=== PATIENT | female | born 1965 | race Caucasian/White ===

== ENCOUNTER 2016-06-04 21:49 | Emergency (ER) | payer OTHER ==
[~2016-06-04] VITALS: Ht 172.7 cm; Wt 141.0 kg
[~2016-06-04 21:49] MED LIST: CIPRO500 MG PO; FLAGYL500 MG PO; HYDROCHLOROTHIA25 MG PO; LISINOPRIL20 MG PO; MOBIC7.5 MG PO; NORCO 5/3251 TABLET PO; PRILOSEC40 MG PO; VOLTAREN75 MG PO
[2016-06-04 22:13] LABS: HEMATOCRIT 37.5 % (36.0-46.0); MCH 30.3 PG (29.0-34.0); MCHC 33.9 G/DL (30.0-36.0); MCV 89.5 FL (83-99); MEAN PLAT.VOLUME 10.4 uM^3 (9.5-12.4); PLATELET COUNT 217 K/uL (156-360); RBC DIS.WIDTH-CV 12.8 % (11.8-14.6); RED BLOOD COUNT 4.19 M/uL (3.80-5.20); WHITE BLOOD COUNT 6.8 K/uL (4.1-10.2)
[2016-06-04 22:24] LABS: CHLORIDE 108 mEq/L (99-109); POTASSIUM 3.4 mEq/L (3.7-5.4); SODIUM 140 mEq/L (136-147)
[2016-06-04 22:25] LABS: GLUCOSE 95 mg/dL (70-99)
[2016-06-04 22:27] LABS: ANION GAP 6 MEQ/L (2-14)
[2016-06-04 22:29] LABS: GFR ESTIMATE (CALCULATED) > 59 mL/min/
[2016-06-04 22:30] LABS: UREA NITROGEN (BUN) 16 mg/dL (9-23)
[2016-06-04 22:35] LABS: D-DIMER ELISA 0.87 mg/L FEU (< 0.57)
[2016-06-04 22:48] LABS: TROP-I INTERPRETATION NEGATIVE; TROPONIN-I < 0.01 ng/mL (0.0-0.30)
[2016-06-05 01:21] VITALS: BP 115/59
== END 2016-06-05 01:34 | disposition home or self-care (01) ==
LOC: EME 21:49
DX: T49.0X5A Adverse effect of local antifungal, anti-infective and anti-inflammatory drugs, initial encounter (principal); F41.9 Anxiety disorder, unspecified; K76.89 Other specified diseases of liver; I10 Essential (primary) hypertension; G89.29 Other chronic pain; Z87.440 Personal history of urinary (tract) infections
CPT/HCPCS: 71020; 71275; 80048; 84484; 85027; 85379; 93005; 99281; 99285

== ENCOUNTER 2016-10-10 21:23 | Emergency (ER) | payer OTHER ==
[~2016-10-10] VITALS: Ht 172.7 cm; Wt 136.4 kg
[2016-10-10 22:26] LABS: EOSINOPHIL (%) 2.5 % (0-5); EOSINOPHIL COUNT 0.1 K/uL (0-0.3); HEMATOCRIT 40.5 % (36.0-46.0); IMMATURE GRANULOCYTE (%) 0.2 % (0.0-0.7); INSTRUMENT ABS NEUTROPHIL CT 1.9 K/uL; LYMPHOCYTE COUNT 2.5 K/uL (1.0-2.8); MCH 30.3 PG (29.0-34.0); MCHC 33.3 G/DL (30.0-36.0); MEAN PLAT.VOLUME 10.3 uM^3 (9.5-12.4); MONOCYTE (%) 12.6 % (3-12); MONOCYTE COUNT 0.7 K/uL (0-0.8); NEUTROPHIL (%) 36.4 % (45-76); NEUTROPHIL COUNT 1.9 K/uL (1.8-6.4); PLATELET COUNT 250 K/uL (156-360); RBC DIS.WIDTH-CV 12.6 % (11.8-14.6); RBC DIS.WIDTH-SD 41.5 % (39-53); RED BLOOD COUNT 4.45 M/uL (3.80-5.20); WHITE BLOOD COUNT 5.2 K/uL (4.1-10.2)
[2016-10-10 22:34] LABS: CHLORIDE 103 mEq/L (99-109); POTASSIUM 3.9 mEq/L (3.7-5.4); SODIUM 140 mEq/L (136-147)
[2016-10-10 22:35] LABS: MAGNESIUM 2.1 mg/dL (1.3-2.7)
[2016-10-10 22:37] LABS: GLUCOSE 98 mg/dL (70-99)
[2016-10-10 22:38] LABS: ANION GAP 9 MEQ/L (2-14); TOTAL BILIRUBIN 0.3 mg/dL (0.0-1.0)
[2016-10-10 22:40] LABS: ALKALINE PHOSPHATASE 97 IU/L (3-129); GFR ESTIMATE (CALCULATED) 56 mL/min/
[2016-10-10 22:41] LABS: UREA NITROGEN (BUN) 18 mg/dL (9-23)
[2016-10-10 22:49] LABS: QUANTITATIVE HCG 5.5 MIU/ML
[2016-10-10 23:46] LABS: TROP-I INTERPRETATION NEGATIVE; TROPONIN-I < 0.01 ng/mL (0.0-0.30)
[2016-10-11 00:51] LABS: TROP-I INTERPRETATION NEGATIVE; TROPONIN-I < 0.01 ng/mL (0.0-0.30)
[2016-10-11 01:10] VITALS: BP 131/72
== END 2016-10-11 01:11 | disposition home or self-care (01) ==
LOC: EME 21:23
PROVIDERS: Emergency Medicine
DX: R00.2 Palpitations (principal); R06.00 Dyspnea, unspecified; R07.89 Other chest pain; I10 Essential (primary) hypertension
CPT/HCPCS: 71020; 80053; 83735; 84484; 84702; 85025; 93005; 99281; 99284

== ENCOUNTER 2017-05-12 15:04 | Emergency (ER) | payer BC ==
[~2017-05-12] VITALS: Ht 172.7 cm; Wt 136.3 kg
[2017-05-12 15:56] LABS: MCH 30.4 PG (29.0-34.0); MCHC 33.8 G/DL (30.0-36.0); MCV 89.9 FL (83-99); PLATELET COUNT 299 K/uL (156-360); RBC DIS.WIDTH-CV 12.7 % (11.8-14.6); RBC DIS.WIDTH-SD 41.7 % (39-53); RED BLOOD COUNT 4.67 M/uL (3.80-5.20); WHITE BLOOD COUNT 6.3 K/uL (4.1-10.2)
[2017-05-12 15:57] LABS: ADD MIUA? YES; BILIRUBIN NEGATIVE; BLOOD NEGATIVE; COLOR YELLOW ((YELLOW)); GLUCOSE (STRIP) NEGATIVE; KETONES NEGATIVE; LEUKOCYTES NEGATIVE; NITRITE NEGATIVE; PROTEIN (STRIP) 30; SPECIFIC GRAVITY 1.017 (1.000-1.030); UROBILINOGEN 0.2 MG/DL (0.2-1.0)
[2017-05-12 16:03] LABS: BACTERIA 1+ /HPF; EPITHELIAL CELLS 1+ /HPF; HYALINE CASTS 0-5 /LPF; MUCUS TRACE /LPF; RED BLOOD CELLS 0-5 /HPF (0-5); UCUL ADDED? NO; WHITE BLOOD CELLS 0-5 /HPF (0-5)
[2017-05-12 16:05] LABS: CHLORIDE 101 mEq/L (99-109); POTASSIUM 2.9 mEq/L (3.7-5.4); SODIUM 139 mEq/L (136-147)
[2017-05-12 16:07] LABS: GLUCOSE 86 mg/dL (70-99)
[2017-05-12 16:09] LABS: ANION GAP 13 MEQ/L (2-14); TOTAL BILIRUBIN 0.8 mg/dL (0.0-1.0)
[2017-05-12 16:11] LABS: ALKALINE PHOSPHATASE 96 IU/L (3-129); GFR ESTIMATE (CALCULATED) > 59 mL/min/
[2017-05-12 16:12] LABS: UREA NITROGEN (BUN) 10 mg/dL (9-23)
[2017-05-12] MEDS ORDERED: CIPRO500 MG PO (17:55)
[2017-05-12] MEDS ORDERED: FLAGYL500 MG PO (17:55)
[2017-05-12 18:16] VITALS: BP 124/65
== END 2017-05-12 18:18 | disposition home or self-care (01) ==
LOC: EME 15:04
PROVIDERS: Nurse Practitioner Family
DX: K57.32 Diverticulitis of large intestine without perforation or abscess without bleeding (principal); K76.0 Fatty (change of) liver, not elsewhere classified; K80.20 Calculus of gallbladder without cholecystitis without obstruction; I10 Essential (primary) hypertension; Z87.440 Personal history of urinary (tract) infections; Z90.710 Acquired absence of both cervix and uterus; Z88.2 Allergy status to sulfonamides
CPT/HCPCS: 74177; 80053; 81003; 85027; 99281; 99284; J1885; J2405

== ENCOUNTER 2017-09-17 01:59 | Emergency (ER) | payer BC, OTHER ==
[~2017-09-17] VITALS: Ht 172.7 cm; Wt 135.5 kg
[2017-09-17 02:16] LABS: APPEARANCE CLEAR ((CLEAR)); BILIRUBIN NEGATIVE; BLOOD NEGATIVE; COLOR YELLOW ((YELLOW)); GLUCOSE (STRIP) NEGATIVE; KETONES NEGATIVE; LEUKOCYTES NEGATIVE; NITRITE NEGATIVE; PROTEIN (STRIP) NEGATIVE; SPECIFIC GRAVITY 1.012 (1.000-1.030); UCUL ADDED? NO; UROBILINOGEN 0.2 MG/DL (0.2-1.0)
[2017-09-17 02:21] LABS: HEMATOCRIT 39.4 % (36.0-46.0); HEMOGLOBIN 13.5 G/DL (11.9-15.5); MCH 31.3 PG (29.0-34.0); MCHC 34.3 G/DL (30.0-36.0); MCV 91.4 FL (83-99); PLATELET COUNT 232 K/uL (156-360); RBC DIS.WIDTH-CV 13.2 % (11.8-14.6); RBC DIS.WIDTH-SD 43.7 % (39-53); RED BLOOD COUNT 4.31 M/uL (3.80-5.20); WHITE BLOOD COUNT 4.7 K/uL (4.1-10.2)
[2017-09-17 02:32] LABS: ALBUMIN 4.1 g/dL (3.2-4.8); CHLORIDE 105 mEq/L (99-109); POTASSIUM 3.4 mEq/L (3.7-5.4); SODIUM 143 mEq/L (136-147)
[2017-09-17 02:34] LABS: GLUCOSE 96 mg/dL (70-99); TOTAL PROTEIN 7.3 g/dL (6.4-8.3)
[2017-09-17 02:36] LABS: TOTAL BILIRUBIN 0.4 mg/dL (0.0-1.0)
[2017-09-17 02:38] LABS: ALKALINE PHOSPHATASE 105 IU/L (3-129); GFR ESTIMATE (CALCULATED) > 59 mL/min/
[2017-09-17 02:39] LABS: UREA NITROGEN (BUN) 10 mg/dL (9-23)
[2017-09-17 02:40] LABS: AST (GOT) 45 IU/L (2-34)
[2017-09-17 02:41] LABS: ALT (GPT) 66 IU/L (3-49)
[2017-09-17 02:47] LABS: QUANTITATIVE HCG 5.7 MIU/ML
[2017-09-17 04:06] LABS: LIPASE 22 U/L (1.0-51.0)
[2017-09-17] MEDS ORDERED: PERCOCET 5/31 TABLET PO (05:39)
[2017-09-17] MEDS ORDERED: ZOFRAN ODT4 MG PO (05:39)
[2017-09-17 06:20] VITALS: BP 132/86
== END 2017-09-17 06:38 | disposition home or self-care (01) ==
LOC: EME 01:59
DX: K80.20 Calculus of gallbladder without cholecystitis without obstruction (principal); K76.0 Fatty (change of) liver, not elsewhere classified; I10 Essential (primary) hypertension; Z87.440 Personal history of urinary (tract) infections; Z88.2 Allergy status to sulfonamides
CPT/HCPCS: 74177; 76705; 80053; 81003; 83690; 84702; 85027; 99281; 99285; J2405; J3010; J7030